=== PATIENT | female | born 1975 | race American Indian/Alaskan Native ===

== ENCOUNTER 2017-04-26 11:02 | Emergency (ER) | payer MEDICAID ==
[2017-04-26 11:15] VITALS: PULSE 65
[2017-04-26] MEDS ORDERED: Sodium Chloride 0.9% 1,000 ML IV ONE (11:37)
[2017-04-26] MEDS ORDERED: Aluminum Hydroxide/Magnesium Hydroxide Susp (30 mL) PO STA (11:37)
--- NOTE | 2017-04-26 11:47 | C.PDOC ---
History Of Present Illness 41 yr old female presents to the ER with complaints of constant epigastric pain. Patient states the pain is worse when eating. Reports she has history of GERD and had a scope 20 years ago and was put on medication at that time. Patient was seen in 2 different hospitals and was being treated for gas and constipation. Patient is a ex smoker an dis in rehab. Denies fever, chest pain, SOB, nausea, vomiting, diarrhea, dysuria, weakness or numbness. Patient also c/o abdominal bloating and mild pain, particularly after eating. Time Seen by Provider: 04/26/17 11:32 Chief Complaint (Nursing): Abdominal Pain History Per: Patient History/Exam Limitations: no limitations Onset/Duration Of Symptoms: Persistent Current Symptoms Are (Timing): Still Present Location Of Pain/Discomfort: Epigastric Additional History Per: Patient Past Medical History Reviewed: Historical Data, Nursing Documentation, Vital Signs Vital Signs: Last Vital Signs Temp 98.3 F 04/26/17 11:11 Pulse 65 04/26/17 11:11 Resp 20 04/26/17 11:11 BP 116/74 04/26/17 11:11 Pulse Ox 100 04/26/17 13:08 Family History: States: No Known Family Hx - Social History Hx Alcohol Use: No Hx Substance Use: Yes - Immunization History Hx Tetanus Toxoid Vaccination: No Hx Influenza Vaccination: No Hx Pneumococcal Vaccination: No Review Of Systems Except As Marked, All Systems Reviewed And Found Negative. Constitutional: Negative for: Fever Cardiovascular: Negative for: Chest Pain Respiratory: Negative for: Shortness of Breath Gastrointestinal: Positive for: Abdominal Pain (Epigastric). Negative for: Nausea, Vomiting, Diarrhea Genitourinary: Negative for: Dysuria Neurological: Negative for: Weakness, Numbness Physical Exam - Physical Exam Appears: Non-toxic, No Acute Distress Skin: Warm, Dry, No Rash Head: Atraumatic, Normacephalic Oral Mucosa: Moist Chest: Symmetrical, No Tenderness Cardiovascular: Rhythm Regular, No Murmur Respiratory: Normal Breath Sounds, No Rales, No Rhonchi, No Stridor, No Wheezing Gastrointestinal/Abdominal: Normal Exam, Soft, No Tenderness, No Guarding, No Rebound Extremity: Normal ROM, No Swelling Neurological/Psych: Oriented x3, Normal Speech, Normal Motor ED Course And Treatment O2 Sat by Pulse Oximetry: 100 (RA ) Pulse Ox Interpretation: Normal - Other Rad X-Ray - Obstructive Series X-Ray: Viewed By Me, Read By Radiologist Interpretation: PROCEDURE: Radiographs of the chest and abdomen (obstructive series). HISTORY: pain and bloating. COMPARISON: None available. FINDINGS: CHEST: The cardiomediastinal silhouette appears within normal limits. No focal consolidation, significant pleural effusion, or definite pneumothorax identified. ABDOMEN AND PELVIS: Nonspecific bowel gas pattern. No definite free air. Pelvic calcifications, likely phleboliths. No acute osseous abnormality is detected. IMPRESSION: Unremarkable radiographs of chest and abdomen. No evidence of mechanical bowel obstruction. Medical Decision Making Medical Decision Making: PLAN: * X-Ray - Obstructive Series * Lidocaine Viscous PO * Maalox PO * Pepcid IVP * Toradol IVP * Sodium Chloride IV * Patient feeling much better. Abd X Ray shows a lot of retained stool and gas. Disposition - Disposition Referrals: [facility] [Outside] Jacques Jama MD [Staff Provider] - Disposition: HOME/ ROUTINE Disposition Time: 13:12 Condition: STABLE Additional Instructions: Take stool softener twice a day. Metamucil once a day. Drink 1/2 gallon of water every day. Follow up with Gastr[facility]ology. Prescriptions: Aluminum Hydroxide/Magnesium [Maalox Plus 30 ml] 30 ml PO DAILY #1 bottle Docusate Sodium [Colace] 100 mg PO BID #60 capsule Famotidine [Pepcid AC] 10 mg PO HS #30 tablet Psyllium Husk/Aspartame [Metamucil Fiber Singles Packet] 3.4 gm PO DAILY #30 powd.pack Instructions: Gastritis (ED), Constipation (ED) Forms: [employer] (Syriac) Print Language: OMANI - POA Present On Arrival: None - Clinical Impression Clinical Impression: Gastritis, Constipation - Scribe Statement The provider has reviewed the documentation as recorded by the Damarisibe Katlyn Briggs Provider Attestation: All medical record entries made by the Damarisibsanjana were at my direction and personally dictated by me. I have reviewed the chart and agree that the record accurately reflects my personal performance of the history, physical exam, medical decision making, and the department course for this patient. I have also personally directed, reviewed, and agree with the discharge instructions and disposition.
[2017-04-26] MEDS ORDERED: Sodium Chloride 0.9% 1,000 ML ONE (11:50)
[2017-04-26] MEDS ORDERED: Aluminum Hydroxide/Magnesium Hydroxide Susp (30 mL) ONE (11:51)
--- NOTE | 2017-04-26 13:02 | RAD ---
PROCEDURE: Radiographs of the chest and abdomen (obstructive series) HISTORY: pain and bloating COMPARISON: None available FINDINGS: CHEST: The cardiomediastinal silhouette appears within normal limits. No focal consolidation, significant pleural effusion, or definite pneumothorax identified. ABDOMEN AND PELVIS: Nonspecific bowel gas pattern. No definite free air. Pelvic calcifications, likely phleboliths. No acute osseous abnormality is detected. IMPRESSION: Unremarkable radiographs of chest and abdomen. No evidence of mechanical bowel obstruction.
[2017-04-26 13:25] VITALS: BP 124/76; RESP 12; TEMP 97; O2SAT 99
--- NOTE | 2017-04-27 19:24 | CARD ---
APPROVED REPORT EKG Measurement Heart [id number] <Conclusion> Sinus bradycardia Otherwise normal ECG
== END 2017-04-26 13:25 | disposition home or self-care (01) ==
LOC: C.ER 11:02
DX: K29.70 Gastritis, unspecified, without bleeding (principal); K59.00 Constipation, unspecified
CPT/HCPCS: 74022; 93005; 96361; 96374; 96375; 99284; C9113; J1885; J7040